=== PATIENT | female | born 1960 | race Caucasian/White ===

== ENCOUNTER 2023-03-20 16:18 | Outpatient (CLI) | payer OTHER | END 2023-03-20 16:19 | disposition home or self-care (01) | LOC: BURRAD 16:18 | PROVIDERS: ATTEND Family Medicine | DX: R59.0 Localized enlarged lymph nodes (principal); J90 Pleural effusion, not elsewhere classified | CPT/HCPCS: 71046 ==

== ENCOUNTER 2023-03-21 11:15 | Outpatient (CLI) | payer OTHER ==
[~2023-03-21 11:15] MED LIST: Iopamidol 370 76% 100 ML VIAL ONE; Iopamidol 370 76% 50 ML VIAL FS ONE
== END 2023-03-21 11:16 | disposition home or self-care (01) ==
LOC: BURRAD 11:15
PROVIDERS: ATTEND Family Medicine
DX: R59.0 Localized enlarged lymph nodes (principal); R79.89 Other specified abnormal findings of blood chemistry; J90 Pleural effusion, not elsewhere classified; R16.1 Splenomegaly, not elsewhere classified; D73.4 Cyst of spleen; E27.9 Disorder of adrenal gland, unspecified; K86.9 Disease of pancreas, unspecified
CPT/HCPCS: 71260; 74177; Q9967